=== PATIENT | male | born 1940 | race Caucasian/White ===

== ENCOUNTER → 2016-08-29 | Outpatient (CLI) | payer OTHER ==
[~2016-08-29] MED LIST: CLX20 PO; LSN20 PO; NAPR1TAB9 PO; SILD100T PO
[2016-08-29 13:10] LABS: BASO % 0.5 %; BASO ABS # 0.03 K/uL (0-0.2); COMPLETE YES; EOS % 4.1 %; HEMATOCRIT 39.3 % (42-52); IG% 0.2 %; LYMPH % 17.7 %; LYMPH ABS # 1.16 K/uL (1.2-3.4); MEAN CELL VOLUME 91.2 fL (80-100); MEAN CORPUSCULAR HEMOGLOBIN 30.9 pg (25-34); MEAN CORPUSCULAR HGB CONC 33.8 g/dl (32-36); MEAN PLATELET VOLUME 11.8 fL (7.4-10.4); MONO % 9.5 %; PLATELET COUNT 203 K/uL (130-400); RED BLOOD COUNT 4.31 M/uL (4.7-6.1); WHITE BLOOD COUNT 6.56 K/uL (4.8-10.8)
[2016-08-29 13:26] LABS: ALT/SGPT 20 U/L (12-78); BLOOD UREA NITROGEN 15 mg/dl (7-18); BUN/CREATININE RATIO 13.8 (10-20); CALCIUM 8.7 mg/dl (8.5-10.1); CARBON DIOXIDE 28 mmol/L (21-32); CHLORIDE 103 mmol/L (98-107); CHOLESTEROL 129 mg/dl (0-200); GLUCOSE 92 mg/dl (70-99); POTASSIUM 4.3 mmol/L (3.5-5.1); SODIUM 139 mmol/L (136-145); TRIGLYCERIDES 62 mg/dl (0-150); VERY LOW DENSITY LIPOPROT CALC 12 mg/dl
[2016-08-29 13:39] LABS: ALB/GLOB RATIO 1.3 (0.9-2); ALKALINE PHOSPHATASE 57 U/L (45-117); AST/SGOT 12 U/L (15-37); CHOLESTEROL/HDL RATIO 2.9; FERRITIN 94.2 ng/ml (8.0-388.0); HDL CHOLESTEROL 45 mg/dl; LDL CHOLESTEROL CALCULATED 72 mg/dl
--- NOTE | 2016-09-02 11:09 | CODING QUERY MEDICAL NECESSITY ---
SUPPORTING DIAGNOSIS NEEDED A supporting diagnosis is required for the test/procedure performed on this patient in order for us to be reimbursed by the patient's insurance. Please provide a supporting diagnosis for the following test/procedure listed below next to the test name along with your signature. *If there is no additional diagnosis for this patient that would support the following test/procedure please document that below next to the test/procedure. Test(s)/Procedure(s) that require a supporting diagnosis: * VITAMIN B-12 LEVEL DIAGNOSIS: * DOS: 08/29/16 Provider Signature: Date: Thank you Sherry Olguin Health Information Management Once completed, please kindly fax back to [phone] For questions please call [phone]
== END | disposition home or self-care (01) ==
LOC: C.LABBC 09:57
PROVIDERS: ATTEND Internal Medicine Geriatric Medicine
DX: I10 Essential (primary) hypertension (principal); E78.5 Hyperlipidemia, unspecified; D64.9 Anemia, unspecified

== ENCOUNTER → 2016-09-26 | Outpatient (CLI) | payer OTHER | END | disposition home or self-care (01) | LOC: C.LABBC 09:42 | PROVIDERS: ATTEND Urology | DX: K63.5 Polyp of colon (principal); N40.0 Benign prostatic hyperplasia without lower urinary tract symptoms ==

== ENCOUNTER → 2016-11-29 | Outpatient (CLI) | payer OTHER | END | disposition home or self-care (01) | LOC: C.LABBC 09:46 | PROVIDERS: ATTEND Internal Medicine Geriatric Medicine | DX: E53.8 Deficiency of other specified B group vitamins (principal) ==

== ENCOUNTER → 2017-03-23 | Outpatient (CLI) | payer OTHER ==
--- NOTE | 2017-03-28 10:14 | CODING QUERY MEDICAL NECESSITY ---
SUPPORTING DIAGNOSIS NEEDED Dr. Woodard, A supporting diagnosis is required for the test/procedure performed on this patient in order for us to be reimbursed by the patient's insurance. Please provide a supporting diagnosis for the following test/procedure listed below next to the test name along with your signature. *If there is no additional diagnosis for this patient that would support the following test/procedure please document that below next to the test/procedure. Test(s)/Procedure(s) that require a supporting diagnosis: * [id number] PSA DIAGNOSIS: DATE OF SERVICE: 03/23/17 Provider Signature: Date: Thank you Derrell Duval [facility] Information Management Once completed, please kindly fax back to [phone] For questions please call [phone]
== END | disposition home or self-care (01) ==
LOC: C.LABBC 10:20
PROVIDERS: ATTEND Urology
DX: N42.89 Other specified disorders of prostate (principal)

== ENCOUNTER → 2017-08-28 | Outpatient (CLI) | payer OTHER ==
[2017-08-28 13:34] LABS: BASO % 0.1 %; BASO ABS # 0.01 K/uL (0-0.2); EOS ABS # 0.16 K/uL (0-0.5); HEMATOCRIT 40.1 % (42-52); HEMOGLOBIN 13.4 g/dL (14.0-18.0); IG# 0.02 K/uL (0.00-0.02); LYMPH % 16.3 %; LYMPH ABS # 1.28 K/uL (1.2-3.4); MEAN CORPUSCULAR HEMOGLOBIN 30.7 pg (25-34); MEAN CORPUSCULAR HGB CONC 33.4 g/dl (32-36); MEAN PLATELET VOLUME 11.2 fL (7.4-10.4); MONO ABS # 0.55 K/uL (0.11-0.59); NEUT % 74.3 %; NEUT ABS # 5.81 K/uL (1.4-6.5); PLATELET COUNT 289 K/uL (130-400); RED CELL DISTRIBUTION WIDTH CV 12.9 % (11.5-14.5); RED CELL DISTRIBUTION WIDTH SD 43.2 fL (36.4-46.3); WHITE BLOOD COUNT 7.83 K/uL (4.8-10.8)
[2017-08-28 14:57] LABS: ALBUMIN 3.7 gm/dl (3.4-5.0); ALT/SGPT 22 U/L (12-78); AST/SGOT 12 U/L (15-37); BLOOD UREA NITROGEN 15 mg/dl (7-18); CALCIUM 8.6 mg/dl (8.5-10.1); CARBON DIOXIDE 27 mmol/L (21-32); CREATININE 1.16 mg/dl (0.60-1.40); GLUCOSE 112 mg/dl (70-99); POTASSIUM 4.4 mmol/L (3.5-5.1); SODIUM 136 mmol/L (136-145)
[2017-08-28 15:08] LABS: ALKALINE PHOSPHATASE 65 U/L (45-117); CHOLESTEROL 137 mg/dl (0-200); LDL CHOLESTEROL CALCULATED 79 mg/dl; TOTAL PROTEIN 7.4 gm/dl (6.4-8.2)
== END | disposition home or self-care (01) ==
LOC: C.LABBC 10:52
PROVIDERS: ATTEND Internal Medicine Geriatric Medicine
DX: I10 Essential (primary) hypertension (principal); E78.5 Hyperlipidemia, unspecified; D64.9 Anemia, unspecified; E53.8 Deficiency of other specified B group vitamins

== ENCOUNTER 2019-07-14 02:18 | Observation (INO) ==
[2019-07-14] MEDS ORDERED: ASPIRIN 81 MG CHEW PO STA (02:33)
[2019-07-14] MEDS ORDERED: NITROGLYCERIN SL 0.4 MG/TAB TAB SL STA (02:33)
[2019-07-14 03:07] LABS: Prothrombin Time 10.1 Seconds (9.0-12.0)
[2019-07-14 03:12] LABS: Basophils # (auto) 0.03 K/uL (0-0.2); Basophils % (auto) 0.3 %; Eosinophils # (auto) 0.35 K/uL (0-0.5); Eosinophils % (auto) 4.1 %; Hematocrit (blood only) 40.5 % (42-52); Hemoglobin 13.7 g/dL (14.0-18.0); Immature Granulocytes # (auto) 0.02 K/uL (0.00-0.02); Immature Granulocytes % (auto) 0.2 %; Lymphocytes # (auto) 1.14 K/uL (1.2-3.4); Lymphocytes % (auto) 13.2 %; Mean Corpuscular Hemoglobin 31.6 pg (25-34); Mean Corpuscular Hgb Conc 33.8 g/dL (32-36); Mean Corpuscular Volume 93.5 fL (80-100); Monocytes # (auto) 0.84 K/uL (0.11-0.59); Monocytes % (auto) 9.8 %; Neutrophils # (auto) 6.23 K/uL (1.4-6.5); Neutrophils % (auto) 72.4 %; Platelet Count 220 K/uL (130-400); RDW Standard Deviation 44.8 fL (36.4-46.3); Red Blood Count 4.33 M/uL (4.7-6.1); White Blood Count 8.61 K/uL (4.8-10.8)
[2019-07-14 03:28] LABS: Alanine Aminotransferase 20 U/L (12-78); Albumin Level 3.6 gm/dl (3.4-5.0); Aspartate Aminotransferase 12 U/L (15-37); BUN Creatinine Ratio 12.7 (10-20); Blood Urea Nitrogen 17 mg/dl (7-18); Calcium 8.8 mg/dl (8.5-10.1); Carbon Dioxide 29 mmol/L (21-32); Chloride 107 mmol/L (98-107); Creatinine Clr Calc Pharmacy 54.3 ml/min; Est GFR (African American) 59.9; Est GFR (Non-African American) 51.7; Glucose 117 mg/dl (70-99); Lipase 97 U/L (73-393); Potassium 4.1 mmol/L (3.5-5.1); Sodium 139 mmol/L (136-145)
[2019-07-14 03:33] LABS: Alkaline Phosphatase 74 U/L (45-117); Bilirubin Direct < 0.1 mg/dl (0-0.2); Bilirubin,Total 0.3 mg/dl (0.2-1); Total Protein 7.6 gm/dl (6.4-8.2); Troponin I < 0.015 ng/ml (0-0.045)
--- NOTE | 2019-07-14 04:12 | History & Physical Report ---
Date of Service July 14, 2019 Assessment & Plan (1) Substernal chest pain: 78 yo M with PMH Depression, HLD, HTN, OA, COPD presents with concerns of chest pressure here for r/o. Substernal Chest Pressure -admit to telemetry -EKG on admission: Normal sinus rhythm. Pulmonary disease pattern. No previous EKG for comparison. -daily EKG -initial trop neg on admission. Cont trending x2 q6h -ASA initiated. Cont med management with Atorvastatin, Lisinopril -NG SL prn for chest pain -ECHO pending -Cardiology consult deferred -A1C, Lipid Panel in AM -Well's Score: 0. Low risk group for PE HTN/HLD -Cont Atorvastatin 10 mg, Lisinopril 40 mg Depression -Cont Citalopram 20 mg FEN/GI: HH Diet DVT Prophylaxis: Lovenox SQ Conditional Code: DNR only. Intubate/Mech Vent ok Dispo: PCU Tele History of Present Illness Chief Complaint: chest pressure Primary Care Provider: Jack Walter, 78 yo M with PMH Depression, HLD, HTN, OA, COPD presents to [facility] with concerns of chest pressure. This started around 0130 this morning. Last such similar occurrence was 30 yrs ago, at which point cardiac workup was negative. Described as central pressure in chest 'like an elephant is sitting on it.' Radiates up into neck along midline. No alleviating factors. Worse with deep inspiration. Pressure was constant until pt came into ER. Gave it a 8/10 at its worst, now a 1/10 at time of interview. Pain/pressure almost all gone away at present. At home, took Tums, Gas-X, and 81mg ASA x2. Associated cough, but otherwise denies SOB, diaphoresis, POTTER, palpitations, syncope or near syncope, F/N/V, chills, ROTHMAN, abd pain, or visual changes. Pt with no other acute concerns or complaints. EKG: Normal sinus rhythm. Pulmonary disease pattern. No previous EKG for comparison. CXR: No acute process. Labs Unremarkable. Initial Trop neg. ER Course: ASA 162 mg, NG 0.4mg SL Family Hx: Father from [place] age 59 Social: Former Smoker quit 10 yrs ago. Quit chewing tobacco 3 yrs ago. Alcohol: 2-3 beers daily. No other illicit drug use. Surgical: Amputation of toe, L inguinal hernia repair, mandibular surgery Allergies Allergy/AdvReac Type Severity Reaction Status Date / Time lovastatin [From Mevacor] Allergy Verified 04/10/19 10:37 Home Medications Home Medications Medication Instructions Recorded Confirmed Type cyanocobalamin (vitamin B-12) 1,000 mcg PO QAM 10/30/18 07/14/19 History [Vitamin B-12] sildenafil [Viagra] 100 mg PO DAILY PRN 10/30/18 07/14/19 History atorvastatin 10 mg tablet 10 mg PO QAM #90 tab 01/18/19 07/14/19 Rx budesonide-formoterol HFA 160 1 puffs INH BID #3 inhaler 01/18/19 07/14/19 Rx mcg-4.5 mcg/actuation aerosol inhaler citalopram 20 mg tablet 20 mg PO QAM #90 tab 01/18/19 07/14/19 Rx lisinopril 40 mg tablet 40 mg PO QAM #90 tab 01/18/19 07/14/19 Rx Past Med/Surg History Family History (Updated 07/14/19 @ 02:33 by Tra Butcher) Other Myocardial infarction No family history of adverse response to anesthesia Social History Preferred Language: Welsh Communication Ability: Effective 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 Beliefs That Will Affect Care: None Current Living Situation: Spouse and Family Other Information That Helps Us Care for You: No Feels Safe at Home: Yes Safety Concerns: Feels Safe At This Time Smoking Status: Former smoker Second Hand Exposure: Yes (father smoked) ; Hx Alcohol Use: Yes Alcohol type: beer Hx Substance Use: No Review of Systems Review of Systems: All systems reviewed & are unremarkable except as noted in HPI & below Physical Exam Constitutional: WD/WN, vitals as above Eyes: PERRL, conjunctivae normal, anicteric sclerae ENMT: external ear and nose normal, oropharynx normal Respiratory: normal respiratory effort, lungs clear to auscultation Cardiovascular: RRR, no murmur, no edema Gastrointestinal (Abdomen): normal bowel sounds, soft, nontender, no hepatosplenomegaly Skin: no rashes, warm and dry Psychiatric: A+Ox3, euthymic affect Results & Data Vital Signs (Past 12 Hours) Vital Signs Temp Pulse Resp BP Pulse Ox 07/14/19 04:00 88 17 144/78 H 96 07/14/19 03:30 82 19 129/85 95 07/14/19 03:00 95 H 25 H 124/86 92 07/14/19 02:39 85 21 144/94 H 95 07/14/19 02:22 36.7 C 94 H 20 168/78 H 94 Laboratory Results Laboratory Results - last 24 hr 07/14/19 07/14/19 07/14/19 02:49 02:49 02:49 WBC 8.61 RBC 4.33 L Hgb 13.7 L Hct 40.5 L MCV 93.5 MCH 31.6 MCHC 33.8 RDW Std Deviation 44.8 RDW Coeff of Regina 13.0 Plt Count 220 MPV 11.0 H Immature Gran % (Auto) 0.2 Neut % (Auto) 72.4 Lymph % (Auto) 13.2 [place] % (Auto) 9.8 Eos % (Auto) 4.1 Baso % (Auto) 0.3 Immature Gran # (Auto) 0.02 Neut # (Auto) 6.23 Lymph # (Auto) 1.14 L [place] # (Auto) 0.84 H Eos # (Auto) 0.35 Baso # (Auto) 0.03 PT 10.1 INR 1.0 Sodium 139 Potassium 4.1 Chloride 107 Carbon Dioxide 29 Anion Gap 3.0 BUN 17 Creatinine 1.32 Est Cr Clr Drug Dosing 54.3 Est GFR ( Amer) 59.9 Est GFR (Non-Af Amer) 51.7 BUN/Creatinine Ratio 12.7 Glucose 117 H Calcium 8.8 Total Bilirubin 0.3 Direct Bilirubin < 0.1 AST 12 L ALT 20 Alkaline Phosphatase 74 Troponin I < 0.015 Total Protein 7.6 Albumin 3.6 Lipase 97 Supervising Physician Co-Signing Physician Notes Patient seen and examined, chart reviewed, case discussed with Dr. De Oliveira and I agree with his assessment and plan as documented above. Briefly, 78yo C male with HTN, HLP, FH of CAD and prior tobacco use presenting with SSCP, acute onset Exam - afebrile, HD stable, unremarkable exam Labs and images reviewed, no acute ischemic changes on EKG, troponin x 12 negative Resident Activity Tracking Resident Involvement: Resident Care Provided Care Provided: [facility] Medicine
[2019-07-14] MEDS ORDERED: NITROGLYCERIN SL 0.4 MG/TAB TAB SL PRN (05:33)
[2019-07-14] MEDS ORDERED: ACETAMINOPHEN 325 MG TAB PO PRN (05:33)
[2019-07-14] MEDS ORDERED: ALUMINUM/MAGNESIUM SUSP 30 ML UDC PO PRN (05:33)
--- NOTE | 2019-07-14 06:07 | Billing Data ---
Date of Service July 14, 2019 Coding Level of Care Code 85831 OBS Care - Level 3
--- NOTE | 2019-07-14 06:07 | Emergency Department Note ---
Entered by Tra Butcher acting as a scribe for ED Provider Note Name: Kingston Avila Age: 78 Arrives Via: Walk in Informant: Patient CC: Chest pain HPI: The patient is a 78 year old male who presents to the emergency department with complaints of constant chest pain beginning this morning. The patient states that he developed chest pain this morning that woke him up from sleep. He notes that his chest pain radiates up into his throat. He reports that he tried taking an antacid with no relief of his symptoms. The patient states that his symptoms do not worsen with exertion. He denies any leg swelling, SOB, and recent trauma/travel. He notes that he has a history of hypertension. He reports that he also has a history of cigarette use, and he states that he drinks alcohol. The patient states that his father from a heart attack at 59. He notes that he took 162mg Aspirin prior to arrival. ROS: See above HPI for pertinent positives & negatives. A total of 10 systems reviewed and were otherwise negative. Past Medical History: Depression, hypertension Past Surgical History: Amputation of toe, mandibular surgery Family History: PR Social History: History of smoking, drinks alcohol, lives with family Home Medications: Please see medication list. Allergies: None Physical: Vitals: BP 168/78, Pulse 94, Resp 20, Temp 98.1 F, O2 Sat 94 Exam: GENERAL: Patient is well appearing and in no acute distress. Anxious appearing. EYES: No scleral icterus, unremarkable pupils. ENT: Mucous membranes moist, no nasal congestion. NECK: No masses appreciated, no meningismus, trachea is midline. RESPIRATORY: No dyspnea. Clear to auscultation and equal bilaterally. No wheeze, no rhonchi. CARDIOVASCULAR: Regular rate and rhythm. No murmurs, rubs, gallops appreciated. GASTROINTESTINAL: Abdomen soft, non-tender, no peritonitis. Bowel sounds positive. No masses appreciated. BACK: No midline tenderness, no CVA tenderness EXTREMITIES: Normal motion all extremities, no cyanosis, no edema. NEUROLOGIC: Alert and oriented, no acute motor or sensory deficits, no focal weakness, cranial nerves grossly intact. SKIN: No rash, no jaundice, no diaphoresis. ED Course: Prior Medical Record, Triage/Nursing Notes, Medications, Allergies reviewed by 0229: The patient was evaluated in room B7. A complete history and physical exam was performed. 0300: I rechecked the patient. He is feeling much better. 0340: The hospitalist was paged. 0343: Upon reevaluation, the patient is stable. I discussed the findings and the treatment plan with the patient. He expresses agreement and understanding. I spoke with Dr. Avila of the [facility] Hospitalist Service. The patient will be evaluated for further management. 0353: I rechecked the patient. He has no further pain. Vital Signs: reviewed and remarkable for HTN Labs: Reviewed and remarkable for wnl trop/cbc/bmp Interventions: saline lock, asa 162mg PO, sl nitro Imaging: CHEST X-RAY: X ray results are stated below per my interpretation: Chest: 1 view: No infiltrate, no effusion, normal cardiac border. EKG: Per My Interpretation: Indication CP: NSR 85 bpm, qtc 452, Large P waves. No Ectopy. No Ischemia. There are no previous for comparison. Cardiac Monitoring: An Order was placed for continuous cardiac monitoring. Ther monitor shows a rate of 80 with a normal sinus rhythm. Consults: 0343: I reviewed the patient's case with Dr. Avila - Hospitalist, [facility]. She will evaluate the patient for further management. Blood pressure: Elevated - Referred to PCP Disposition: Hospitalization Differentials: Differential: Cardiac Ischemia (STEMI, NSTEMI, Unstable Angina, etc), Aortic Dissection, Arrhythmia, Pulmonary Embolism, Pneumonia, Pne umothorax, MSK, Infectious, Pericarditis/Myocarditis, Esophageal Rupture, Gastrointestinal, amongst other pathologies entertained. Medical Decision Makin yr old male with history of DLP, HTN and smoking and family CAD hx arrives with substernal cp to neck which resolved with SLNTG and aspirin. CXR, EKG, and initial trop negative. OK on monitoring coordinator. He has no evidence PE nor dissection. With risks will need to come in for further monitoring and evaluation. Impression: Substernal chest pain Can Parsons MD The scribe's documentation has been prepared under my direction and personally reviewed by me in its entirety. I confirm that the note above accurately reflects all work, treatment, procedures, and medical decision making performed by me. 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: No Beliefs That Will Affect Care: None Current Living Situation: Spouse and Family Other Information That Helps Us Care for You: No Feels Safe at Home: Yes Safety Concerns: Feels Safe At This Time Smoking Status: Former smoker Second Hand Exposure: Yes (father smoked) ; Hx Alcohol Use: Yes Alcohol type: beer Hx Substance Use: No Results & Data Vital Signs Vital Signs - 24 hr 07/14/19 02:22 07/14/19 02:39 07/14/19 03:00 Temperature 36.7 C Temperature Source Oral Pulse Rate 94 H 85 95 H Pulse Rate from SpO2 Sensor 85 95 H Respiratory Rate 20 21 25 H Blood Pressure 168/78 H 144/94 H 124/86 Blood Pressure Mean 108 121 103 Pulse Oximetry 94 95 92 Oxygen Delivery Method Room Air Room Air Room Air Sepsis Action Taken by Nursing No Action Required 07/14/19 03:30 07/14/19 04:00 07/14/19 04:30 Temperature Temperature Source Pulse Rate 82 88 86 Pulse Rate from SpO2 Sensor 82 88 86 Respiratory Rate 19 17 17 Blood Pressure 129/85 144/78 H 155/85 H Blood Pressure Mean 111 103 93 Pulse Oximetry 95 96 96 Oxygen Delivery Method Room Air Room Air Room Air Sepsis Action Taken by Snf Medications Current Medication List: was personally reviewed by me Laboratory Data Attestation: I reviewed the patient's lab results. Result diagrams: 07/14/19 02:49 07/14/19 02:49 Lab Results 07/14/19 07/14/19 07/14/19 Range/Units 02:49 02:49 02:49 WBC 8.61 (4.8-10.8) K/uL RBC 4.33 L (4.7-6.1) M/uL Hgb 13.7 L (14.0-18.0) g/dL Hct 40.5 L (42-52) % MCV 93.5 (80-100) fL MCH 31.6 (25-34) pg MCHC 33.8 (32-36) g/dL RDW Std Deviation 44.8 (36.4-46.3) fL RDW Coeff of Regina 13.0 (11.5-14.5) % Plt Count 220 (130-400) K/uL MPV 11.0 H (7.4-10.4) fL Immature Gran % (Auto) 0.2 % Neut % (Auto) 72.4 % Lymph % (Auto) 13.2 % [place] % (Auto) 9.8 % Eos % (Auto) 4.1 % Baso % (Auto) 0.3 % Immature Gran # (Auto) 0.02 (0.00-0.02) K/uL Neut # (Auto) 6.23 (1.4-6.5) K/uL Lymph # (Auto) 1.14 L (1.2-3.4) K/uL [place] # (Auto) 0.84 H (0.11-0.59) K/uL Eos # (Auto) 0.35 (0-0.5) K/uL Baso # (Auto) 0.03 (0-0.2) K/uL PT 10.1 (9.0-12.0) Seconds INR 1.0 (0.9-1.1) Sodium 139 (136-145) mmol/L Potassium 4.1 (3.5-5.1) mmol/L Chloride 107 (98-107) mmol/L Carbon Dioxide 29 (21-32) mmol/L Anion Gap 3.0 (3-11) BUN 17 (7-18) mg/dl Creatinine 1.32 (0.6-1.4) mg/dl Est Cr Clr Drug Dosing 54.3 ml/min Est GFR ( Amer) 59.9 Est GFR (Non-Af Amer) 51.7 BUN/Creatinine Ratio 12.7 (10-20) Glucose 117 H (70-99) mg/dl Calcium 8.8 (8.5-10.1) mg/dl Total Bilirubin 0.3 (0.2-1) mg/dl Direct Bilirubin < 0.1 (0-0.2) mg/dl AST 12 L (15-37) U/L ALT 20 (12-78) U/L Alkaline Phosphatase 74 (45-117) U/L Troponin I < 0.015 (0-0.045) ng/ml Total Protein 7.6 (6.4-8.2) gm/dl Albumin 3.6 (3.4-5.0) gm/dl Lipase 97 (73-393) U/L Administered Medications Discontinued Medications Aspirin (Aspirin Chew) 162 mg PO NOW STA Stop: 07/14/19 02:34 Last Admin: 07/14/19 02:53 Dose: 162 mg Documented by: [id number] Nitroglycerin (Nitrostat) 0.4 mg SL NOW STA Stop: 07/14/19 02:34 Last Admin: 07/14/19 02:53 Dose: 0.4 mg Documented by: [id number] Discharge Plan Visit Data *Final* Discharge Date/Time: 07/14/19 05:08 Chief Complaint: Cardiac Assessment Stated Complaint: CHEST TIGHTNESS - WITHING LAST HOUR ED Provider: Can Parsons Discharge Problem: Substernal chest pain Patient Disposition: Admitted As Inpatient Discharge Instructions Interventions: ED Discharge Assessment Last Done: 07/14/19 05:08 The scribe's documentation has been prepared under my direction and personally reviewed by me in its entirety. I confirm that the note above accurately reflects all work, treatment, procedures, and medical decision making performed by me.
--- NOTE | 2019-07-14 06:43 | XRay Report ---
XR chest 1V portable CLINICAL HISTORY: 78 years-old Male presenting with Chest Pain. TECHNIQUE: Portable upright AP view of the chest was obtained. COMPARISON: 01/18/2019. FINDINGS: Atherosclerosis of the aortic arch. Cardiac silhouette normal in size. Lungs are hyperinflated. Heter ogeneous radiolucency of the upper lobe suspected. No focal opacity. No pleural effusion or pneumotho rax. Osteopenia may be present. Upper abdomen normal. IMPRESSION: 1. Findings suggest emphysema. No focal infiltrate to suggest pneumonia. ACT 112: Negative or not required by law. Electronically signed by: Rosalio Gomes M.D. 07/14/2019 6:42 AM
[2019-07-14] MEDS ORDERED: ENOXAPARIN INJ 40 MG/0.4 ML SYR SQ SCH (09:00)
[2019-07-14] MEDS ORDERED: lisinopriL 40 MG TAB PO SCH (09:00)
[2019-07-14] MEDS ORDERED: CYANOCOBALAMIN 500 MCG TABLET (VITAMIN B-12) PO SCH (09:00)
[2019-07-14] MEDS ORDERED: FLUTICASONE/VILANTEROL 200/25MCG 14 PUFFS/INHALER INH SCH (09:00)
[2019-07-14] MEDS ORDERED: CITALOPRAM 20 MG TAB PO SCH (09:00)
[2019-07-14] MEDS ORDERED: ATORVASTATIN 10 MG TAB PO SCH (09:00)
[2019-07-14] MEDS ORDERED: FLUTICASONE/VILANTEROL 200/25MCG 14 PUFFS/INHALER INH ONE (09:00)
--- NOTE | 2019-07-14 14:18 | Discharge Summary ---
Date of Service July 14, 2019 Admission HPI Per Admitting Provider 78 yo M with PMH Depression, HLD, HTN, OA, COPD presents to [facility] with concerns of chest pressure. This started around 0130 this morning. Last such similar occurrence was 30 yrs ago, at which point cardiac workup was negative. Described as central pressure in chest 'like an elephant is sitting on it.' Radiates up into neck along midline. No alleviating factors. Worse with deep inspiration. Pressure was constant until pt came into ER. Gave it a 8/10 at its worst, now a 1/10 at time of interview. Pain/pressure almost all gone away at present. At home, took Tums, Gas-X, and 81mg ASA x2. Associated cough, but otherwise denies SOB, diaphoresis, POTTER, palpitations, syncope or near syncope, F/N/V, chills, ROTHMAN, abd pain, or visual changes. Pt with no other acute concerns or complaints. EKG: Normal sinus rhythm. Pulmonary disease pattern. No previous EKG for comparison. CXR: No acute process. Labs Unremarkable. Initial Trop neg. ER Course: ASA 162 mg, NG 0.4mg SL Family Hx: Father from [place] age 59 Social: Former Smoker quit 10 yrs ago. Quit chewing tobacco 3 yrs ago. Alcohol: 2-3 beers daily. No other illicit drug use. Surgical: Amputation of toe, L inguinal hernia repair, mandibular surgery Admission Exam Per Admitting Provider Constitutional: WD/WN, vitals as above Eyes: PERRL, conjunctivae normal, anicteric sclerae ENMT: external ear and nose normal, oropharynx normal Respiratory: normal respiratory effort, lungs clear to auscultation Cardiovascular: RRR, no murmur, no edema Gastrointestinal (Abdomen): normal bowel sounds, soft, nontender, no hepatosplenomegaly Skin: no rashes, warm and dry Psychiatric: A+Ox3, euthymic affect Principal Diagnosis GERD, nonsustained VTach Discharge Exam Constitutional WD/WN, vitals as above Respiratory normal respiratory effort, lungs clear to auscultation Cardiovascular RRR, no murmur, no edema Gastrointestinal (Abdomen) normal bowel sounds, soft, nontender, no hepatosplenomegaly Skin no rashes, warm and dry Psychiatric A+Ox3, euthymic affect Discharge Data Allergies Allergy/AdvReac Type Severity Reaction Status Date / Time lovastatin [From Mevacor] Allergy Verified 04/10/19 10:37 Hospital Course (1) Substernal chest pain: 78 yo M with PMH Depression, HLD, HTN, OA, COPD presents with concerns of chest pressure here for r/o. Substernal Chest Pressure: -EKG on admission: Normal sinus rhythm. Pulmonary disease pattern. No previous EKG for comparison. -Trop trend negative for ischemia. -Cardiology consult deferred due to normal Echo in conversation [facility] Dr. Hall. Suggested starting metoprolol low dose for nonsustained VTach (12 beat run while sleeping, asymptomatic) and to set up stress Echo as soon as possible outpatient . - Pt's symptoms resolved to nearly 0/10 on arrival after taking Gas X, antacids, and aspirin. Pt had hot dog with relish for dinner with relish last night and then had pain when lying flat. Expect GERD however workup outpatient as above to rule out heart disease. Emphysema: -CXR showed emphysematous changes. Pt former smoker for 20 total years. -Given that last PFTs were "about 30 years ago" per patient, recommend PFTs outpatient to determine extent of lung disease. -Continue home inhalers. HTN/HLD -Continue Atorvastatin 10 mg, Lisinopril 40 mg. -PCP follow up for HTN control given a number of elevted BPs in hospital. Depression -Continue Citalopram 20 mg. Total Time Total Time Spent Total Time Spent (In Minutes): see attending attestation. Discharge Plan Discharge Items Patient Disposition: Home - Self-Care Reason For Visit: CP R/O Discharge Diagnosis: reflux, high heart rate Activity: Resume your previous activity Non-emergency contact: Primary Care Provider and Hospitalist Call non-emergency contact if: your symptoms worsen Follow-up/Referrals: Jack Walter, DO [Primary Care Provider] - Diet: Heart Healthy Addtl Attending Provider Instructions: You were admitted to the hospital for observation after having chest pressure. During your time here your heart enzymes were normal, and your EKG was normal. Your Echocardiogram (ultrasound of the heart) was also normal. You had a high h eart rate and Cardiology recommended we start you on metoprolol 25mg twice daily to help keep that heart rate down. You can start that pill tonight before you go to bed. They also recommended you get a stress test in the near future to check for signs of heart disease. You will hear from one of our nurses with regard to scheduling both the stress test and an appointment with your primary care doct or. If between now and then you have chest pressure or trouble breathing please come back to the ER. These symptoms joiner were feeling were likely due to reflux. For reflux you can take over the counter pepcid or tums, or if those do not hel pyou can take a daily Prilosec and let your primary care doctor know you started it. Pending Studies at Discharge: No Stand-Alone Forms: My [facility] Not iT, Smoking Cessation Medications and DC Order Prescriptions: New metoprolol tartrate 25 mg tablet 25 mg PO BID Qty: 60 RF: 0 Continued Symbicort 160-4.5 mcg/actuation HFA aerosol inhaler 1 puffs INH BID Qty: 3 RF: 3 atorvastatin 10 mg tablet 10 mg PO QAM Qty: 90 RF: 3 citalopram 20 mg tablet 20 mg PO QAM Qty: 90 RF: 3 lisinopril 40 mg tablet 40 mg PO QAM Qty: 90 RF: 3 cyanocobalamin (vitamin B-12) [Vitamin B-12] 1,000 mcg Tablet 1,000 mcg PO QAM RF: 0 sildenafil [Viagra] 100 mg Tablet 100 mg PO DAILY PRN (Reason: Sexual Activity) RF: 0 Discharge Orders: Discharge Order (Routine); Ordered 07/14/19 Ordered By: Destiny Gauthier Admission Data Admit Date/Time: 07/14/19 04:41 Attending Provider: Lily Soria Admit Provider: Skinny De Oliveira Primary Care Provider: Jack Walter Other Providers: Layne vAila Other Interventions: Discharge Summary Assessment (RN) Last Done: 07/14/19 14:28 DC Date/Time DO NOT enter until pt leaves facility: 07/14/19 15:11 Supervising Physician Co-Signing Physician Notes Resident Physician Supervision Note: I independently interviewed and examined the patient and verified the reeves history and physical, reviewed labs and image studies, discussed the case with the resident Dr. Gauthier and agree with the findings and care plan. Resident Activity Tracking Resident Involvement: Resident Care Provided Care Provided: Adult Hospital Medicine
--- NOTE | 2019-07-14 14:23 | Electrocardiogram Report ---
Test Reason : Blood Pressure : / mmHG Vent. Rate : 085 BPM Atrial Rate : 085 BPM P-R Int : 184 ms QRS Dur : 092 ms QT Int : 380 ms P-R-T Axes : 083 -74 074 degrees QTc Int : 452 ms Normal sinus rhythm Left anterior fascicular block Abnormal ECG No previous ECGs available Confirmed by Gaudencio Hall ([id number]) on 07/14/2019 2:22:37 PM Referred By: REFERRED SELF Confirmed By:Gaudencio Hall
[2019-07-14] MEDS ORDERED: METOPROLOL TARTRATE 25 MG TAB PO ONE (14:30)
== END 2019-07-14 15:11 | disposition home or self-care (01) ==
LOC: ED 02:18 → 2S 02:18 → SUATTDRO 04:41 → 2S 05:08

== ENCOUNTER 2019-08-27 08:04 | Observation (INO) ==
[2019-08-27] MEDS ORDERED: HEPARIN (PORCINE) 1000 UNIT/ML 10 ML (CATH LAB USE ONLY) ONE (09:31)
[2019-08-27] MEDS ORDERED: NiCARDipine HCL INJ 2.5 MG/ML 10 ML AMP ONE (09:31)
--- NOTE | 2019-08-27 09:31 | Pre Anesthesia Assessment ---
Date of Service August 27, 2019 Pre Sedation Assessment Vital Signs Pulse Resp BP Pulse Ox 08/27/19 08:30 60 18 130/67 97 Cardiovascular RRR, no murmur, no edema Respiratory normal respiratory effort, lungs clear to auscultation Pre-Sedation Airway Assessment Smoking Status: Former smoker Hx Sleep Apnea: No Hx Difficult Intubation: No Short, Thick Neck: No Thyromental Distance: > or= 3.5 Finger Breadths Oral Cavity: + WNL Mallampati Class: II ASA: ASA2 NPO Status Date of Last Intake of Fluids: 08/27/19 Time of Last Intake of Fluids: 05:00 Date of Last Intake of Solid Food: 08/26/19 Time of Last Intake of Solid Foods: 21:00 Procedure Planning Contraindications for Sedation: none Current Medications Reviewed: Yes Notes The planned sedation has been discussed with the patient. Informed Consent was obtained. I have identified the patient, determined the appropriateness of sedation and have assessed the patient immediately prior to the procedure. All medicine(s) and interventions are by my order.
[2019-08-27] MEDS ORDERED: MIDAZOLAM HCL 1 MG/ML 2ML VIAL ONE ×2 (09:32→10:55)
[2019-08-27] MEDS ORDERED: fentaNYL citrate 100 MCG/2 ML VIAL ONE ×2 (09:32→11:01)
[2019-08-27] MEDS ORDERED: NITROGLYCERIN/D5W 100MCG/ML 20ML SYR ONE (09:32)
--- NOTE | 2019-08-27 09:32 | History & Physical Bridge Note ---
Date of Service August 27, 2019 History & Physical Bridge Note I have examined the patient, reviewed the History & Physical and in the interval since the performance of the History & Physical I have noted the following changes of clinical significance: no changes noted
[2019-08-27] MEDS ORDERED: ADENOSINE IV SOLN 3 MG/ML 20 ML VIAL IV ONE (10:10)
[2019-08-27] MEDS ORDERED: CLOPIDOGREL BISULFATE 300 MG TAB ONE (11:27)
--- NOTE | 2019-08-27 11:38 | Post Anesthesia Assessment ---
Date of Service August 27, 2019 Post Sedation Assessment Vital Signs Pulse Resp BP Pulse Ox 08/27/19 08:30 60 18 130/67 97 Recovery Score Activity: Moves 4 extremities Respiration: Deep Breath/Cough Circulation: +/-20% PreAnes Value Consciousness: Fully Awake Oxygen Saturation: O2 needed for >90% Discharge Sedation Level of Care: Fast Track Phase II Post Sedation Plan On clinical assessment, the patient appears to have tolerated the sedation without complications. Patient is recovering as anticipated. Patient will continue to be monitored by nursing and may be discharged when sedation discharge criteria are met per below protocol. Upon Completions of procedure up to 15 minutes continue every 5 minute vital signs and the P.A.R. score; then discharge to a Phase I or Fast Track to Phase II per the following guidelines: * Discharge Patient to appropriate Phase II area if PAR is 8 or greater or return to pre- procedure baseline. The post - procedure orders will be as directed. * If PAR score is less than 8 or not return to pre-procedure baseline then patient will follow Phase I monitoring till PAR is reached for Phase II. The Phase I may be done in procedure room or may call to secure a Phase I area. * If naloxone or flumazenil are used for reversal, hold in Phase I for continued monitoring from when last reversal dose was given for a minimum of 60 minutes or longer pending the nurse and/or physician discretion of patient condition before discharge to Phase II. Please call the Sedation Physician to re-evaluate and complete post-note for discharge to Phase II area. Do NOT discharge from procedure sedation or Phase 1 until post- sedation evaluation note is complete by procedure /sedation MD Sedation Discharge Instructions to be given to the patient at discharge to home.
[2019-08-27] MEDS ORDERED: ONDANSETRON INJ 2 MG/ML 2 ML VIAL IV PRN (11:40)
[2019-08-27] MEDS ORDERED: NITROGLYCERIN SL 0.4 MG/TAB TAB SL PRN (11:40)
[2019-08-27] MEDS ORDERED: SODIUM CHLORIDE 0.9% 1000ML 750 ML IV SCH (11:45)
--- NOTE | 2019-08-27 11:50 | Cardiac Catheterization ---
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 Cardiac Status Clinical evaluation leading to the procedure CAD Presenation: Positive Stress Test Anginal Classification: CCS IV Heart Failure: No Cardiogenic Shock within 24 Hours: No Cardiac Arrest within 24 Hours: No Imaging Studies Past 6 Months: Yes Stress Studies Past 6 Months: Yes Stress Echocardiogram: Yes - Positive and Risk/Extent of Ischemia (High) Diagnostic Physicians Name: Juan Santana MD Status: Elective Closure Device Percutaneous Entry Location: Radial Closure Device: Radial Band Recommendations: PCI without planned CABG PCI Indication: + Stress Test and Unstable Angina Lesion Segment Name: mid LAD Culprit Artery: Yes Stenosis Prior to Rx (%): 80 Chronic Total Occlusion: No IVUS: Yes FFR: Yes Pre-Procedure KIMMY Flow: 2 Previously Treated Lesion: No Lesion Complexity: High/C Lesion Length (mm): 30 Thrombus Present: No Bifurcation Lesion: Yes Guidewire Across Lesion: Stenosis Post-Procedure (%): 0 Post-Procedure KIMMY Flow: 3 Devices(s) Deployed: Yes Yes Lesion #2 Segment Name: left PLB Culprit Artery: Yes Stenosis Prior to Rx (%): 95 Chronic Total Occlusion: No IVUS: No FFR: No Pre-Procedure KIMMY Flow: 3 Lesion Complexity: Non-High/Non-C Lesion Length (mm): 12 Thrombus Present: No Bifurcation Lesion: Yes Guidewire Across Lesion: Yes Stenosis Post-Procedure (%): 0 Post-Procedure KIMMY Flow: 3 Devices(s) Deployed: Yes Intraprocedure Events Significant Disection: No Perforation: No Cardiac Cath Procedure Full Procedure Date August 27, 2019 Pre-Procedure Diagnosis Pre-Procedure Diagnosis: Angina and Positive Stress Test AUC Score AUC Score: 7 Post-Procedure Diagnosis Post-Procedure Diagnosis: Severe CAD, Successful PCI and Normal Intracardiac Pressures Procedure(s) Performed Procedure(s) Performed: Coronary Angiography, Left Heart Cath, Drug Eluting Stent, IVUS and Fractional Flow [employer] Juan Santana MD Manager Sql(s) Eligio Estimated Blood Loss Estimated Blood Loss: 20 Medication(s) Medication(s): Clopidogrel, Fentanyl, Heparin, Lidocaine 1%, Nicardipine, Nitroglycerin and Versed Summary of Findings Indication: Abnormal stress test, episode of crushing chest pain at rest Access: 6 Fr slender right radial artery Catheters: [place], JR4 guide, EBU 3.5 guide Findings: LM -medium caliber vessel, 20% ostial and distal stenosis LAD -medium caliber, heavily calcified, diffuse severe proximal to mid disease up to 70 to 80%, 50% focal mid segment disease at takeoff of second diagonal, 50-60% latemid disease, distal vessel with luminal irregularities and KIMMY II flow as wraps around apex. Second diagonal with 20-30% proximal disease Circumflex -30% ostial stenosis, proximal luminal irregularities, 40% mid segment disease. Proximal OM 2 with 40 to 50% disease. Left PLB with 95% ostial stenosis. RCA -medium caliber, dominant, calcified, mild proximal disease, 50% mid segment disease, distal luminal irregularities. 40-50 % proximal right PDA LVEDP -13 IFR of mid RCA RCA cannulated with JR4 guide BMW wire placed in the distal vessel ACIST FFR catheter placed into latemid vessel Pd/Pa 0.95 Catheter and wire removed. No apparent vessel complications --IFR of LM/proximal circumflex/proximal OM2-- Left main cannulated with EBU 3.5 guide BMW wire placed into distal OM 2 ACIST FFR catheter placed into distal OM2 Pd/Pa 0.99 -- PCI of L-PLB -- Antithrombotic therapy: Heparin, Clopidogrel Procedure: Wire removed from OM2 and placed into distal L-PLB Ostial LPLB lesion predilated with 2.0 compliant balloon Dilated lesion stented with 2.25 x 15 mm Wallace across take-off of OM3 Stent post-dilated with stent balloon IC vasodilators administered for spasm Post procedure KIMMY 3 flow in stent and stent well expanded with minimal residu al stenosis. Moderate ostal stenosis of small OM3 but KIMMY 3 flow -- PCI of LAD -- Wire removed from circumflex and placed into distal LAD Attempted to IVUS LAD but unable to pass catheter across proximal stenosis, heavily calcified disease noted extending back into ostium. Minimal left main disease. Proximal to mid LAD dilated with 2.5 balloon Ostial to mid LAD stented with 3.0 x 38 mm José Luis drug-eluting stent Repeat IVUS showed well opposed stent, underexpanded in proximal/mid aspect Pro-water wire placed into circumflex Stent postdilated with 3.5 NC balloon Slight progression of ostial circumflex stenosis post stenting, 40-50%. ACIST catheter placed into mid circumflex - Pd/Pa 0.99 ACIST catheter placed into distal LAD - Pd/Pa 0.86 across late-mid LAD lesion, 0.91 across mid LAD lesion at 2nd diagonal. Post procedure KIMMY 3 flow in stent and stent well expanded with minimal residual stenosis. Arterial Closure: TR Band Summary: 1. Severe multi-vessel coronary artery disease - Severe, diffuse, up to 70-80% proximal to mid LAD disease. - 40-50% mid circumflex/proximal OM2 (iFR - Pd/Pa 0.99) - 95% ostial L-PLB - 50% mid RCA (iFR - Pd/Pa 0.95) 2. Normal intracardiac filling pressure 3. Successful PCI of ostial to mid LAD with single drug-eluting stent (3.0 x 38 mm Wallace; post-dilated with 3.5 NC). - residual moderate, sequential mid LAD lesions and ostial circumflex stenosis (LCx 40-50% - iFR Pd/Pa 0.99). 4. Successful PCI of ostial L-PLB with single drug-eluting stent (2.25 x 15 Wallace). 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 If recurrent symptoms in future could consider additional PCI of mid LAD lesions. Hemodynamics Rest Ao:: 103/50/75 Final Ao: 138/73/100 LV: 104/13 Recommendations Recommendations: PCI without planned CABG Specimens Specimens: None Radiation Exposure (mGy) 3356 Contrast (mls) 200 Fluids (cc crystalloids) Fluids (cc crystalloids): 153 Drains Drains: none Anesthesia moderate Procedural Complication(s) None Disposition PCU I attest to the content of the Intraoperative Record and any orders documented therein. Any exceptions are noted below. PerSay Card Cath Procedure Codes Cardiac Catheterization Procedure 1: Cardiovascular Cath Procedures: 14559 Left Heart Cath (+/-LV) Procedure 2: Cardiovascular Cath Procedures: 41175 (Doppler) Pressure Wire Procedure 3: Cardiovascular Cath Procedures: 06761 (Doppler) Pressure Wire Addl vessel Procedure 4: Cardiovascular Cath Procedures: 59753 (Doppler) Pressure Wire Addl vessel Therapeutic Services & Ancillary Proc Procedure 1: Cardiovascular Tx and Anc Procedures: 87892 IV Ultrasound (Coronary or Graft) Moderate Sedation Procedure 1: Sedation/Anesthesia: 58089 Mod Sedation by the same physician;Init15 Min Child Age 5 & Up Procedure 2: Sedation/Anesthesia: 72407 Mod Sedation by the same physician; Ea [id number] Minutes Stenting Procedure 1: Cardiovascular Stent Procedures: 98355 Perc transcatheter placement of intracoronary stent(s), with ang Procedure 2: Cardiovascular Stent Procedures: 91219 Ea addl branch of a major coronary artery PG Care Time/CCT Total # of Minutes Spent Total Time Spent with Patient: Total time spent is greater than 50% in coordination of care (as documented) at patient's floor/unit and/or counseling patient:
--- NOTE | 2019-08-27 16:42 | Electrocardiogram Report ---
Test Reason : Blood Pressure : / mmHG Vent. Rate : 074 BPM Atrial Rate : 074 BPM P-R Int : 182 ms QRS Dur : 086 ms QT Int : 346 ms P-R-T Axes : 078 -79 070 degrees QTc Int : 384 ms Normal sinus rhythm Left axis deviation Abnormal ECG When compared with ECG of 14-JUL-2019 02:27, QT has shortened Confirmed by Judson Ascencio ([id number]) on 08/27/2019 4:42:11 PM Referred By: Dayday Santana Confirmed By:Judson Ascencio
[2019-08-27] MEDS: METOPROLOL TARTRATE 25 MG TAB PO SCH (20:01)
[2019-08-28 07:26] LABS: Basophils # (auto) 0.03 K/uL (0-0.2); Basophils % (auto) 0.4 %; Eosinophils # (auto) 0.25 K/uL (0-0.5); Eosinophils % (auto) 3.5 %; Hematocrit (blood only) 38.7 % (42-52); Hemoglobin 12.6 g/dL (14.0-18.0); Immature Granulocytes # (auto) 0.01 K/uL (0.00-0.02); Immature Granulocytes % (auto) 0.1 %; Lymphocytes # (auto) 1.08 K/uL (1.2-3.4); Mean Corpuscular Hgb Conc 32.6 g/dL (32-36); Mean Corpuscular Volume 92.1 fL (80-100); Mean Platelet Volume 11.4 fL (7.4-10.4); Monocytes # (auto) 0.58 K/uL (0.11-0.59); Monocytes % (auto) 8.1 %; Neutrophils # (auto) 5.23 K/uL (1.4-6.5); Neutrophils % (auto) 72.9 %; Platelet Count 220 K/uL (130-400); RDW Coefficient of Variation 13.4 % (11.5-14.5); RDW Standard Deviation 44.8 fL (36.4-46.3); White Blood Count 7.18 K/uL (4.8-10.8)
[2019-08-28 07:56] LABS: BUN Creatinine Ratio 13.6 (10-20); Calcium 8.8 mg/dl (8.5-10.1); Creatinine Clr Calc Pharmacy 57.2 ml/min; Est GFR (African American) 64.8; Est GFR (Non-African American) 55.9; Potassium 4.1 mmol/L (3.5-5.1)
[2019-08-28] MEDS: METOPROLOL TARTRATE 25 MG TAB PO SCH (08:00)
[2019-08-28] MEDS ORDERED: ATORVASTATIN 40 MG TAB PO SCH (09:00)
[2019-08-28] MEDS ORDERED: CLOPIDOGREL BISULFATE 75 MG TAB PO SCH (09:00)
[2019-08-28] MEDS ORDERED: ASPIRIN 81 MG ECTAB PO SCH (09:00)
[2019-08-28] MEDS ORDERED: FLUTICASONE/VILANTEROL 100/25MCG 14 PUFFS/INHALER INH SCH (09:00)
[2019-08-28] MEDS ORDERED: CITALOPRAM 20 MG TAB PO SCH (09:00)
[2019-08-28] MEDS ORDERED: lisinopriL 40 MG TAB PO SCH (09:00)
[2019-08-28] MEDS ORDERED: CYANOCOBALAMIN 500 MCG TABLET (VITAMIN B-12) PO SCH (09:00)
--- NOTE | 2019-08-28 09:12 | Discharge Summary ---
Date of Service August 28, 2019 Admission HPI Per Admitting Provider Mr. Avila is a 79-year-old man with a history of hypertension, dyslipidemia, prior tobacco abuse and family history of coronary artery disease who was referred for cardiac catheterization in the setting of prior episode of chest discomfort occurring at rest and abnormal stress test with failure to augment LV function. Specialty Data Cardiology Cardiac catheterization/PCI: 1. Severe multi-vessel coronary artery disease - Severe, diffuse, up to 70-80% proximal to mid LAD disease. - 40-50% mid circumflex/proximal OM2 (iFR - Pd/Pa 0.99) - 95% ostial L-PLB - 50% mid RCA (iFR - Pd/Pa 0.95) 2. Normal intracardiac filling pressure 3. Successful PCI of ostial to mid LAD with single drug-eluting stent (3.0 x 38 mm José Luis; post-dilated with 3.5 NC). - residual moderate, sequential mid LAD lesions and ostial circumflex stenosis (LCx 40-50% - iFR Pd/Pa 0.99). 4. Successful PCI of ostial L-PLB with single drug-eluting stent (2.25 x 15 [place]). Discharge Data Consultations 08/27/19 11:44 Consult Cardiac Rehabilitation Routine Procedures Performed Operation Date: 08/27/19 09:30 Actual Procedures p Cath, Left with Cors and Vent - Dayday Santana MD p Drug Eluting Stent SGl Vessel - Dayday Santana MD s IVUS Coronary Single Vessel - Dayday Santana MD s Cineradiography w/Routine Exam - Dayday Santana MD Hospital Course (1) CAD (coronary artery disease): Patient underwent cardiac catheterization via right radial artery. He was found to have multivessel coronary artery disease including severe, diffuse 70 to 80% proximal to mid LAD disease with KIMMY II distal flow. In addition had a 95% ostial stenosis of a small left PLB and moderate mid RCA disease. Mid RCA disease nonobstructive by FFR. Underwent PCI with drug-eluting stent placed to proximal to mid LAD and another drug-eluting stent placed to left PLB. Procedure uncomplicated. Admitted to telemetry for observation overnight. Remained chest pain-free. No arrhythmia on monitor. Post procedure labs unchanged. On hospital day 2 feeling well with no apparent access site complications. Discharged home on dual antiplatelet therapy with aspirin and clopidogrel. Follow-up with Dr. Britt in 2 to 3 weeks. Discharge Instructions Home Medications cyanocobalamin (vitamin B-12) [Vitamin B-12] 1,000 mcg PO QAM 10/30/18 [History Confirmed 08/27/19] budesonide-formoterol HFA 160 mcg-4.5 mcg/actuation aerosol inhaler 1 puffs INH BID #3 inhaler 01/18/19 [Rx Confirmed 08/27/19] citalopram 20 mg tablet 20 mg PO QAM #90 tab 01/18/19 [Rx Confirmed 08/27/19] lisinopril 40 mg tablet 40 mg PO QAM #90 tab 01/18/19 [Rx Confirmed 08/27/19] metoprolol tartrate 25 mg tablet 25 mg PO BID #180 tab 07/30/19 [Rx Confirmed 08/27/19] aspirin 81 mg tablet,delayed release 81 mg PO DAILY #90 tab 08/26/19 [Rx Confirmed 08/27/19] nitroglycerin 0.4 mg sublingual tablet 0.4 mg SL Q5M PRN #25 tab 08/26/19 [Rx Confirmed 08/27/19] atorvastatin 40 mg PO QAM #30 tab 08/28/19 [Rx] clopidogrel 75 mg PO QAM #30 tab 08/28/19 [Rx] Coding Level of Care Code 13307 OBS Care - Discharge Diagnoses CAD (coronary artery disease) I25.10
[2019-08-28] MEDS ORDERED: ENOXAPARIN INJ 40 MG/0.4 ML SYR SQ SCH (12:00)
== END 2019-08-28 10:36 | disposition home or self-care (01) ==
LOC: 2S 08:04 → CC 08:04